=== PATIENT | male | born 1955 | race Caucasian/White ===

== ENCOUNTER → 2021-11-13 | Outpatient (CLI) | payer BC ==
[2021-11-13 07:59] LABS: HEMOGLOBIN 14.6 gm/dl (14.0-17.5); RED BLOOD COUNT 4.68 M/UL (4.20-5.50); WHITE BLOOD COUNT 4.9 K/UL (4.5-11.0)
[2021-11-13 08:25] LABS: BUN/CREATININE RATIO 24 (0-10)
[2021-11-14 07:10] LABS: VITAMIN D, 25-HYDROXY 52.6 ng/mL (30.0-100.0)
[2021-11-14 08:12] LABS: THYROXINE (T4) 8.3 ug/dL (4.5-12.0)
== END ==
LOC: LAB 07:25
PROVIDERS: Nurse Practitioner Family
DX: Z13.1 Encounter for screening for diabetes mellitus (principal); Z12.5 Encounter for screening for malignant neoplasm of prostate; I10 Essential (primary) hypertension; E78.5 Hyperlipidemia, unspecified; E03.9 Hypothyroidism, unspecified; E55.9 Vitamin D deficiency, unspecified
CPT/HCPCS: 36415; 80053; 80061; 83036; 84153; 84436; 84443; 84480; 85025